=== PATIENT | male | born 1975 | race Caucasian/White ===

== ENCOUNTER 2018-03-19 07:54 | Emergency (ER) | payer OTHER ==
[~2018-03-19] VITALS: Ht 172.7 cm; Wt 83.6 kg
[2018-03-19 07:57] VITALS: BP 124/87
--- NOTE | 2018-03-19 08:02 | NUR ---
PT AMBULATES TO BED 3
--- NOTE | 2018-03-19 08:10 | NUR ---
42 YO M BIB W/ C/O DIZZINESS W/ NAUSEA SINCE LAST NIGHT. PT REPORTS HE HAD HEAD/NECK PAIN A FEW DAYS PRIOR, DENIES ANY INJURY OR TRAUMA. AAOX4 TO PERSON, PLACE, TIME, AND SITUATION. GCS 15. PT WITH STEADY GAIT. PERRLA TO BL EYES. RR ARE EVEN AND UNLABORED. PATIENT DENIES ANY CP OR SOB OR PAIN. NAD. VSS. AWAITING ER MD HDZ. ALL NEEDS MET AT THIS TIME. WILL CONTINUE TO MONITOR.
[2018-03-19] MEDS ORDERED: NACL 0.9% 1,000 ML IV ONE (08:30)
[2018-03-19 08:51] LABS: BASOPHILS % (AUTO) 0.1 % (0.0-2.0); EOSINOPHILS # (AUTO) 0.1 K/uL (0-0.4); EOSINOPHILS % (AUTO) 0.8 % (0.0-4.0); HEMATOCRIT 46.4 % (36-52); HEMOGLOBIN 15.2 g/dL (12.0-18.0); LYMPHOCYTES # (AUTO) 1.2 K/uL (2.0-11.5); LYMPHOCYTES % (AUTO) 18.1 % (20.5-51.1); MEAN CORPUSCULAR HEMOGLOBIN 29 pg (27-31); MEAN CORPUSCULAR HGB CONC 33 g/dL (33-37); MEAN CORPUSCULAR VOLUME 89.7 fL (80-94); MONOCYTES # (AUTO) 0.4 K/uL (0.8-1.0); MONOCYTES % (AUTO) 6.3 % (1.7-9.3); NEUTROPHILS # (AUTO) 4.9 K/uL (1.8-7.7); NEUTROPHILS % (AUTO) 74.7 % (42.2-75.2); PLATELET COUNT (AUTO) 258 K/uL (140-450); RED BLOOD CELL COUNT(AUTO) 5.18 MIL/uL (4.20-6.10); RED CELL DISTRIBUTION WIDTH 13.7 % (11.6-13.7); WHITE BLOOD COUNT (AUTO) 6.5 K/uL (4.8-10.8)
[2018-03-19 09:02] LABS: ALBUMIN 4.3 g/dL (3.4-5.0); ANION GAP 12.4 (8-16); CARBON DIOXIDE 28.7 mmol/L (21-32); POTASSIUM 4.1 mmol/L (3.5-5.1); TOTAL BILIRUBIN 0.6 mg/dL (0.0-1.0)
[2018-03-19] MEDS ORDERED: MECLIZINE 25 MG TAB PO ONE (09:25)
[2018-03-19 09:40] VITALS: BP 122/82
--- NOTE | 2018-03-19 09:41 | NUR ---
Patient discharged with v/s stable. Written and verbal after care instructions given and explained. Patient alert, oriented and verbalized understanding of instructions. Ambulatory with steady gait. All questions addressed prior to discharge. ID band removed. Patient advised to follow up with PMD. Rx of MECLIZINE HYDROCHLORIDE given. Patient educated on indication of medication including possible reaction and side effects. Opportunity to ask questions provided and answered.
== END 2018-03-19 09:41 | disposition home or self-care (01) ==
LOC: MED 07:54
DX: H81.10 Benign paroxysmal vertigo, unspecified ear (principal); R03.0 Elevated blood-pressure reading, without diagnosis of hypertension; R11.0 Nausea; K21.9 Gastro-esophageal reflux disease without esophagitis
CPT/HCPCS: 36415; 80053; 82948; 85025; 93005; 96360; 99284; J7030; J8597; 96361

== ENCOUNTER 2018-11-23 15:57 | Emergency (ER) | payer OTHER ==
[~2018-11-23] VITALS: Ht 167.6 cm; Wt 83.9 kg
[2018-11-23 16:09] VITALS: BP 130/92
--- NOTE | 2018-11-23 16:16 | NUR ---
PT AMBULATES BACK TO THE LOBBY
--- NOTE | 2018-11-23 16:30 | NUR ---
BIB SELF W/ C/O BURNING ON URINATION , HEMATURIA, HEAD ACHE RADIATING TO HIS LT NECK THIS MORNING. DENIES NVD OR DIZZINESS . SKIN IS PINK/WARM/DRY; AAOX4 WITH EVEN AND STEADY GAIT; LUNGS CLEAR BL; HR EVEN AND REGULAR; PT DENIES ANY FEVER, CP, SOB, OR COUGH AT THIS TIME; PATIENT STATES PAIN OF 6/10 AT THIS TIME; VSS; PATIENT POSITIONED FOR COMFORT; HOB ELEVATED; BEDRAILS UP X2; BED DOWN. ER MD MADE AWARE OF PT STATUS.
[2018-11-23 17:09] LABS: APPEARANCE,URINE CLEAR (CLEAR); BILIRUBIN,URINE NEGATIVE (NEGATIVE); BLOOD, URINE 2+ (NEGATIVE); COLOR,URINE YELLOW (YELLOW); LEUKOCYTE ESTERASE ,URINE NEGATIVE (NEGATIVE); NITRITE, URINE NEGATIVE (NEGATIVE); UGLUCOSE NEGATIVE (NEGATIVE)
[2018-11-23 17:46] LABS: RBC,URINE 11-20 (MOD) /HPF (0-5); WBC,URINE NONE SEEN /HPF (0-5)
[2018-11-23 18:25] VITALS: BP 116/77
[2018-11-25 06:07] LABS: CHLAMYDIA TRACHOMATIS AMP DNA Negative (Negative)
== END 2018-11-23 18:25 | disposition home or self-care (01) ==
LOC: MED 15:57
DX: N39.0 Urinary tract infection, site not specified (principal); K21.9 Gastro-esophageal reflux disease without esophagitis
CPT/HCPCS: 36415; 81001; 87491; 99283

== ENCOUNTER 2020-12-23 15:40 | Emergency (ER) | payer OTHER ==
[~2020-12-23] VITALS: Ht 167.6 cm; Wt 84.8 kg
[2020-12-23 15:44] VITALS: BP 123/84
--- NOTE | 2020-12-23 16:18 | NUR ---
PT W/C ASSISTED TO BED
--- NOTE | 2020-12-23 16:32 | NUR ---
45 Y MALE BIB SELF DUE TO LOWER BACK PAIN THAT IS RADIAITNG DOWN HIS LEGS AT THIS TIME. PT STATED HE USUALLY HAS CHRONIC BACK PAIN AND WILL SEE HIS CHIROPRACTOR TO HELP RELIEVE THE PAIN. PT STATED HE SAW HIS CHIROPRACTOR TODAY, BUT LEFT WITH THE PAIN WORSE AND RADIAITNG DOWN HIS LEGS. PT DENIES SOB, CHEST PAIN, FEVER/CHILLS AT THIS TIME. PT STATES 8/10 CRAMPING AND "PINCHING" PAIN. DENIES ANY PAIN UPON URINATION. TOOK XANAX WITH NO RELIEF. PMH: DENIES NKA
--- NOTE | 2020-12-23 18:15 | NUR ---
SAID AT BEDSIDE EXAMINING PT
[2020-12-23] MEDS ORDERED: MORPHINE SULFATE 4 MG/ML SYR IM ONE (18:20)
[2020-12-23] MEDS ORDERED: KETOROLAC 15 MG/ML VIAL IM ONE (18:30)
[2020-12-23] MEDS ORDERED: ONDANSETRON 4 MG ODT PO ONE (18:30)
[2020-12-23] MEDS ORDERED: LIDOCAINE 5% 1 EA PATCH TP SCH (18:30)
--- NOTE | 2020-12-23 19:30 | NUR ---
SHIFT CHANGE REPORT GIVEN TO RIAN SERNA
--- NOTE | 2020-12-23 19:36 | NUR ---
RECEIVED REPORT FROM CORINE SERNA.
[2020-12-23] MEDS ORDERED: LID5T TP (19:39)
[2020-12-23] MEDS ORDERED: ACET-8386 PO (19:39)
[2020-12-23] MEDS ORDERED: IBUP-2218 PO (19:39)
[2020-12-23] MEDS ORDERED: CYCL-711 PO (19:39)
[2020-12-23 20:50] VITALS: BP 123/84
--- NOTE | 2020-12-23 20:50 | NUR ---
Patient discharged with v/s stable. Written and verbal after care instructions given and explained. Patient alert, oriented and verbalized understanding of instructions. Ambulatory with steady gait. All questions addressed prior to discharge. ID band removed. Patient advised to follow up with PMD. Rx of HYDROCODONE/ACETAMINOPHEN, FLEXERIL, IBUPROFEN, AND LIDOCAINE HYD. given. Patient educated on indication of medication including possible reaction and side effects. Opportunity to ask questions provided and answered.
--- NOTE | 2020-12-23 21:09 | NUR ---
The patient's care was reviewed and supervised by DENILSON GRIMALDO RN.
== END 2020-12-23 20:50 | disposition home or self-care (01) ==
LOC: MED 15:40
DX: M54.40 Lumbago with sciatica, unspecified side (principal); K21.9 Gastro-esophageal reflux disease without esophagitis; Z79.899 Other long term (current) drug therapy; Z79.1 Long term (current) use of non-steroidal anti-inflammatories (NSAID); Z79.891 Long term (current) use of opiate analgesic
CPT/HCPCS: 81002; 96372; 99283; J2270; Q0162

== ENCOUNTER 2021-01-09 21:25 | Emergency (ER) | payer OTHER ==
[~2021-01-09] VITALS: Ht 167.6 cm; Wt 84.8 kg
[~2021-01-09 21:25] MED LIST: ACET-8386 PO; CYCL-711 PO; IBUP-2218 PO; LID5T TP
[2021-01-09 21:40] VITALS: BP 141/91
--- NOTE | 2021-01-09 22:00 | NUR ---
PT TAKEN TO BED 3
--- NOTE | 2021-01-09 22:46 | NUR ---
RAD AT BEDSIDE
[2021-01-09] MEDS ORDERED: DICYCLOMINE HCL LIQUID 20 MG, ALUMINUM HYD/MAG/SIMETHICONE 30 ML, LIDOCAINE VISCOUS 2% ... PO ONE ×3 (22:50)
[2021-01-09 22:58] LABS: BASOPHILS % (AUTO) 0.1 % (0.0-2.0); EOSINOPHILS % (AUTO) 0.4 % (0.0-4.0); HEMATOCRIT 43.1 % (36-52); HEMOGLOBIN 14.8 g/dL (12.0-18.0); LYMPHOCYTES % (AUTO) 11.3 % (20.5-51.1); MEAN CORPUSCULAR HEMOGLOBIN 31 pg (27-31); MEAN CORPUSCULAR HGB CONC 34 g/dL (33-37); MEAN CORPUSCULAR VOLUME 88.8 fL (80-94); MONOCYTES # (AUTO) 0.5 K/uL (0.8-1.0); MONOCYTES % (AUTO) 5.6 % (1.7-9.3); NEUTROPHILS # (AUTO) 7.6 K/uL (1.8-7.7); NEUTROPHILS % (AUTO) 82.6 % (42.2-75.2); PLATELET COUNT (AUTO) 300 K/uL (140-450); RED BLOOD CELL COUNT(AUTO) 4.85 MIL/uL (4.20-6.10); RED CELL DISTRIBUTION WIDTH 13.5 % (11.6-13.7); WHITE BLOOD COUNT (AUTO) 9.1 K/uL (4.8-10.8)
[2021-01-09 23:04] LABS: CARBON DIOXIDE 29.8 mmol/L (21-32); CREATININE 0.9 mg/dL (0.6-1.3); POTASSIUM 3.8 mmol/L (3.5-5.1)
[2021-01-09] MEDS ORDERED: DICYCLOMINE HCL LIQUID 10 MG/5 ML UDC ONE ×2 (23:29→23:36)
[2021-01-09] MEDS ORDERED: ALUMINUM HYD/MAG/SIMETHICONE 30 ML UDC ONE (23:30)
[2021-01-09 23:49] LABS: ALBUMIN 4.3 g/dL (3.4-5.0); BILIRUBIN,DIRECT 0.1 mg/dL (0.0-0.3); TOTAL BILIRUBIN 0.5 mg/dL (0.0-1.0)
[2021-01-10] MEDS ORDERED: PANT40EC PO (00:18)
--- NOTE | 2021-01-10 00:25 | NUR ---
IV removed, catheter intact and site benign. Applied folded 4x4 gauze and tape to stop bleeding.
[2021-01-10 00:28] VITALS: BP 128/77
--- NOTE | 2021-01-10 00:28 | NUR ---
Patient discharged with v/s stable. Written and verbal after care instructions given and explained. Patient alert, oriented and verbalized understanding of instructions. Ambulatory with steady gait. All questions addressed prior to discharge. ID band removed. Patient advised to follow up with PMD. Rx of PROTONIX given. Patient educated on indication of medication including possible reaction and side effects. Opportunity to ask questions provided and answered.
== END 2021-01-10 00:28 | disposition home or self-care (01) ==
LOC: MED 21:25
DX: R07.9 Chest pain, unspecified (principal); K21.9 Gastro-esophageal reflux disease without esophagitis; K22.719 Barrett's esophagus with dysplasia, unspecified
CPT/HCPCS: 36415; 71045; 80048; 80076; 83690; 84484; 85025; 93005; 99285

== ENCOUNTER 2022-07-06 17:37 | Emergency (ER) | payer OTHER ==
[~2022-07-06] VITALS: Ht 167.6 cm; Wt 83.5 kg
[~2022-07-06 17:37] MED LIST changes: -ACET-8386 PO; +ACET-8905 PO; +PANT40EC PO
[2022-07-06 17:48] VITALS: BP 136/82
[2022-07-06] MEDS ORDERED: KETOROLAC 30 MG/ML VIAL IM ONE (18:50)
[2022-07-06] MEDS ORDERED: NAPR-54 PO (18:58)
[2022-07-06] MEDS ORDERED: CYCL-711 PO (18:58)
[2022-07-06] MEDS ORDERED: LID5T TP (18:58)
[2022-07-06 19:18] LABS: APPEARANCE,URINE CLEAR (CLEAR); BILIRUBIN,URINE NEGATIVE (NEGATIVE); BLOOD, URINE NEGATIVE (NEGATIVE); COLOR,URINE YELLOW (YELLOW); LEUKOCYTE ESTERASE ,URINE NEGATIVE (NEGATIVE); NITRITE, URINE NEGATIVE (NEGATIVE); UGLUCOSE NEGATIVE (NEGATIVE)
--- NOTE | 2022-07-06 20:23 | NUR ---
Patient discharged with v/s stable. Written and verbal after care instructions given and explained. Patient alert, oriented and verbalized understanding of instructions. Ambulatory with steady gait. All questions addressed prior to discharge. ID band removed. Patient advised to follow up with PMD. Rx of FLEXERIL, LIDODERM 5% PATCH and NAPROSYN given. Patient educated on indication of medication including possible reaction and side effects. Opportunity to ask questions provided and answered.
== END 2022-07-06 20:23 | disposition home or self-care (01) ==
LOC: MED 17:37
DX: S39.012A Strain of muscle, fascia and tendon of lower back, initial encounter (principal); K21.9 Gastro-esophageal reflux disease without esophagitis; Z79.899 Other long term (current) drug therapy; X58.XXXA Exposure to other specified factors, initial encounter; Y93.39 Activity, other involving climbing, rappelling and jumping off; Y92.89 Other specified places as the place of occurrence of the external cause; Y99.8 Other external cause status
CPT/HCPCS: 81003; 96372; 99283; J1885

== ENCOUNTER 2023-09-16 20:58 | Emergency (ER) | payer OTHER ==
[~2023-09-16] VITALS: Ht 172.7 cm; Wt 82.6 kg
[~2023-09-16 20:58] MED LIST changes: +NAPR-337 PO
[2023-09-16 21:13] VITALS: BP 141/84; PULSE 88; RESP 16; TEMP 97.6; O2SAT 98
[2023-09-16 22:12] LABS: BASOPHILS % (AUTO) 0.2 % (0.0-2.0); EOSINOPHILS # (AUTO) 0.1 K/uL (0-0.4); EOSINOPHILS % (AUTO) 0.6 % (0.0-4.0); HEMATOCRIT 43.5 % (36-52); HEMOGLOBIN 14.4 g/dL (12.0-18.0); LYMPHOCYTES # (AUTO) 1.5 K/uL (2.0-11.5); LYMPHOCYTES % (AUTO) 14.3 % (20.5-51.1); MEAN CORPUSCULAR HEMOGLOBIN 30 pg (27-31); MEAN CORPUSCULAR HGB CONC 33 g/dL (33-37); MEAN CORPUSCULAR VOLUME 88.9 fL (80-94); MONOCYTES # (AUTO) 0.8 K/uL (0.8-1.0); MONOCYTES % (AUTO) 7.3 % (1.7-9.3); NEUTROPHILS % (AUTO) 77.6 % (42.2-75.2); PLATELET COUNT (AUTO) 304 K/uL (140-450); RED BLOOD CELL COUNT(AUTO) 4.89 MIL/uL (4.20-6.10); RED CELL DISTRIBUTION WIDTH 13.5 % (11.6-13.7); WHITE BLOOD COUNT (AUTO) 10.4 K/uL (4.8-10.8)
[2023-09-16] MEDS: NACL 0.9% 1,000 ML IV ONE (22:14)
[2023-09-16 22:22] LABS: ANION GAP 12.9 (8-16); CALCIUM 9.6 mg/dL (8.5-10.1); CARBON DIOXIDE 28.2 mmol/L (21-32); POTASSIUM 4.1 mmol/L (3.5-5.1)
[2023-09-16 22:37] LABS: ALBUMIN 3.9 g/dL (3.4-5.0); BILIRUBIN,DIRECT 0.1 mg/dL (0.0-0.3); THYROID STIMULATING HORMONE 1.65 uIU/mL (0.34-3.74); TOTAL BILIRUBIN 0.3 mg/dL (0.0-1.0); TOTAL PROTEIN, SERUM 7.6 g/dL (6.4-8.2)
[2023-09-16 23:25] VITALS: BP 119/80; PULSE 79; RESP 16; TEMP 98; O2SAT 98
== END 2023-09-16 23:25 | disposition home or self-care (01) ==
LOC: MED 20:58
DX: T67.5XXA Heat exhaustion, unspecified, initial encounter (principal); K21.9 Gastro-esophageal reflux disease without esophagitis; R03.0 Elevated blood-pressure reading, without diagnosis of hypertension; Z79.1 Long term (current) use of non-steroidal anti-inflammatories (NSAID); Z79.899 Other long term (current) drug therapy; X58.XXXA Exposure to other specified factors, initial encounter; Y93.89 Activity, other specified; Y92.89 Other specified places as the place of occurrence of the external cause; Y99.8 Other external cause status
CPT/HCPCS: 36415; 71045; 80048; 80076; 84443; 85025; 93005; 96360; 99285; J7030; Q0092